=== PATIENT | male | born 1990 | race Caucasian/White ===

== ENCOUNTER 2016-10-08 10:37 | Emergency (ER) | payer OTHER ==
[~2016-10-08] VITALS: Ht 188 cm; Wt 77.1 kg
[2016-10-08 10:43] VITALS: BP 139/97
--- NOTE | 2016-10-08 10:50 | NUR ---
PT AMB TO BED 7.
--- NOTE | 2016-10-08 10:52 | NUR ---
26M BIB SELF C/O DOG BITE TO LEFT THUMB; LEFT RADIAL PULSE PALPABLE, LEFT CAP REFILL < 2 SECONDS, NO LOSS OF SENSATION TO LEFT HAND AT THIS TIME; SUPERFICIAL WOUND W/ MILD BLEEDING NOTED AT THIS TIME; PT C/O PRESSURE/THROBBING PAIN TO LEFT THUMB, NON-RADIATING, 7/10 X 1016 TODAY; A&OX4, PERRLA, BL LUNG SOUNDS CLEAR, RR EVEN/UNLABORED, SKIN IS WARM/DRY AT THIS TIME; PT DENIES N/V/D AT THIS TIME; PT RESTING IN CHAIR, POSITIONED FOR COMFORT; ER MD MADE AWARE OF STATUS. WILL CONTINUE TO MONITOR.
--- NOTE | 2016-10-08 10:57 | NUR ---
Patient being evaluated by physician at bedside.
[2016-10-08] MEDS ORDERED: RABIES VACCINE 2.5 IU VIAL IMVAC ONE (11:00)
[2016-10-08] MEDS ORDERED: RABIES IMMUNE GLOBULIN 150 IU/ML IM ONE (11:00)
--- NOTE | 2016-10-08 11:04 | NUR ---
ANIMAL BITE REPORT FAXED TO [facility]; CONFIRMATION RECIEVED; PT STATES WORKS AT [facility] AND HAS ALSO REPORTED INCIDENT.
--- NOTE | 2016-10-08 11:24 | NUR ---
CALLED PHARMACY; RABIES IMMUNOGLOBULIN ORDERED BY ROSCOE HUGGINS NOT AVAILABLE AT THIS TIME; ER MD DR. HUGGINS NOTIFIED. WILL CONTINUE TO MONITOR.
[2016-10-08] MEDS ORDERED: NEOMYCIN/POLYMYXIN/BACITRACIN 0.9 GM/1 PKT TP ONE (11:37)
[2016-10-08 11:44] VITALS: BP 139/97
== END 2016-10-08 11:45 | disposition home or self-care (01) ==
LOC: MED 10:37
DX: S61.052A Open bite of left thumb without damage to nail, initial encounter (principal); S61.051A Open bite of right thumb without damage to nail, initial encounter; Z88.0 Allergy status to penicillin; W54.0XXA Bitten by dog, initial encounter; Y93.89 Activity, other specified; Y92.89 Other specified places as the place of occurrence of the external cause; Y99.0 Civilian activity done for income or pay
CPT/HCPCS: 90375; 90471; 90675; 90715; 99284